=== PATIENT | male | born 1940 | race Caucasian/White ===

== ENCOUNTER 2018-09-03 18:14 | Emergency (ER) | payer OTHER ==
[~2018-09-03] VITALS: Ht 157.5 cm; Wt 78.2 kg
[2018-09-03 18:22] VITALS: BP 147/99
--- NOTE | 2018-09-03 18:29 | NUR ---
WAIT IN LOBBY
--- NOTE | 2018-09-03 18:42 | NUR ---
TO BED # 01 VIA WHEEL CHAIR
--- NOTE | 2018-09-03 19:13 | NUR ---
PT BIB FAMILY C/O LEFT ANKLE PAIN & SWELLING S/P FALL X TODAY. PT REPORTS TWISTING ANKLE AND FALLING, SWELLING AND REDNESS PRESENT. PT REPORTS SHARP NON RADIATING PAIN AT 8/10. +CMS. VSS. ER TO SEE PT. MED HX:DENIES
--- NOTE | 2018-09-03 19:38 | NUR ---
Dr. Cheema examining patient.
[2018-09-03] MEDS ORDERED: HYDROcodone/APAP 5/325 MG 1 TAB TAB PO ONE (19:50)
--- NOTE | 2018-09-03 20:00 | NUR ---
POSTERIOR SHORT LEG SPLINT APPLIED TO PT L LEG, WRAPPED IN MARVIN WRAP. +CSM
--- NOTE | 2018-09-03 20:10 | NUR ---
PT GIVEN INSTRUCTION ON PROPER USE OF CRUTCHES. CRUTCHES FITTED TO PT HEIGHT WITH 2 INCH SPACE BETWEEN ARMPIT AND START OF CRUTCHES. PT HANDLES LOCATED AT PT WRISTS. PT GIVEN INSTRUCTION ON USE OF CRUTCHES, FROM SITTING TO STANDING AND VICE VERSA, INLCUDING WALKING. PT DEMONSTRATED SAFE USE FOR APPROXIMATELY 40 FEET, PT STATED HE FELT COMFORTABLE WITH USE.
[2018-09-03 20:35] VITALS: BP 137/74
--- NOTE | 2018-09-03 20:35 | NUR ---
Patient discharged with v/s stable. Written and verbal after care instructions given and explained, translated in [place] by myself. Patient alert, oriented and verbalized understanding of instructions. Patient wheel chair assisted to car. All questions addressed prior to discharge. ID band removed. Patient advised to follow up with PMD. List of orthopedic doctors given to patient to call in the morning. Rx of [place] 5mg-325mg and Ibuprofen 400mg given. Patient educated on indication of medication including possible reaction and side effects. Opportunity to ask questions provided and answered.
== END 2018-09-03 20:35 | disposition home or self-care (01) ==
LOC: MED 18:14
DX: S82.435A Nondisplaced oblique fracture of shaft of left fibula, initial encounter for closed fracture (principal); X50.1XXA Overexertion from prolonged static or awkward postures, initial encounter; Y93.89 Activity, other specified; Y92.89 Other specified places as the place of occurrence of the external cause; Y99.8 Other external cause status
CPT/HCPCS: 29515; 73610; 99283